=== PATIENT | female | born 2000 ===

== ENCOUNTER → 2018-02-20 09:35 | Outpatient (CLI) | payer OTHER ==
[~2018-02-20 09:35] MED LIST: SYNTHROID50 MCG
== END | disposition home or self-care (01) ==
LOC: LAB 09:35
DX: Z00.121 Encounter for routine child health examination with abnormal findings (principal); E03.8 Other specified hypothyroidism; E66.3 Overweight; F06.31 Mood disorder due to known physiological condition with depressive features

== ENCOUNTER 2018-05-24 11:02 | Emergency (ER) | payer OTHER ==
[~2018-05-24] VITALS: Ht 167.6 cm; Wt 84.8 kg
== END 2018-05-24 21:07 | disposition home or self-care (01) ==
LOC: ER 11:02
DX: R19.7 Diarrhea, unspecified (principal); R10.32 Left lower quadrant pain

== ENCOUNTER 2019-02-03 12:01 | Emergency (ER) | payer OTHER ==
[~2019-02-03] VITALS: Ht 165.1 cm; Wt 78.9 kg
== END 2019-02-03 13:56 | disposition home or self-care (01) ==
LOC: ER 12:01
DX: S81.822A Laceration with foreign body, left lower leg, initial encounter (principal); W45.8XXA Other foreign body or object entering through skin, initial encounter; Y93.89 Activity, other specified; Y92.89 Other specified places as the place of occurrence of the external cause; Y99.8 Other external cause status

== ENCOUNTER 2019-02-11 13:53 | Emergency (ER) | payer OTHER ==
[~2019-02-11] VITALS: Ht 165.1 cm; Wt 78.9 kg
== END 2019-02-11 16:43 ==
LOC: ER 13:53
DX: Z48.02 Encounter for removal of sutures (principal)